=== PATIENT | female | born 1950 | race Two or more races ===

== ENCOUNTER 2022-08-22 21:17 | Inpatient (IN) | payer MEDICAID ==
[~2022-08-22] VITALS: Ht 165.1 cm; Wt 83.9 kg
[2022-08-22] MEDS ORDERED: MORPHINE SULFATE 4 MG/1 ML DISP.SYRIN IV ONE (22:30)
[2022-08-22] MEDS ORDERED: MORPHINE SULFATE 4 MG/1 ML DISP.SYRIN ONE (22:42)
[2022-08-22 22:46] LABS: HEMATOCRIT 38.1 % (31.2-41.9); MEAN CORPUSCULAR HEMOGLOBIN 27.7 uug (24.7-32.8); MEAN CORPUSCULAR VOLUME 84.3 fL (75.5-95.3); PLATELET COUNT (AUTO) 230 K/uL (179-408)
[2022-08-22 22:55] LABS: ALANINE AMINOTRANSFERASE 26 U/L (14-59); ALKALINE PHOSPHATASE 128 U/L (50-136); ASPARTATE AMINOTRANSFERASE 20 U/L (15-37); BILIRUBIN,TOTAL 0.6 mg/dL (0.2-1.0); CARBON DIOXIDE 25 mmol/L (21-32); CHLORIDE 104 mmol/L (98-107); CREATININE 1.9 mg/dL (0.6-1.3); GLUCOSE 130 mg/dL (74-106); POTASSIUM 4.4 mmol/L (3.5-5.1); UREA NITROGEN, BLOOD 42 mg/dL (7-18)
--- NOTE | 2022-08-22 23:33 | NUR ---
Patient out of unit for ct scan with no distress noted.
[2022-08-22] MEDS ORDERED: IV NORMAL SALINE 500 ML BAG IV ONE (23:45)
--- NOTE | 2022-08-22 23:51 | NUR ---
Patient back from ct scan with no distress noted.
[2022-08-23 00:45] LABS: *BILIRUBIN,URIN NEGATIVE (NEGATIVE); *BLOOD, URINE NEGATIVE (NEGATIVE); *CLARITY,URINE CLEAR (CLEAR); *COLOR,URINE YELLOW (YELLOW); *KETONES,URINE NEGATIVE (NEGATIVE); *UROBILINOGEN,URINE 0.2 E.U./dl (NORMAL); LEUKOCYTE ESTERASE ,URINE 2+ (NEGATIVE); NITRITE, URINE NEGATIVE (NEGATIVE); UGLUCOSE NEGATIVE (NEGATIVE)
[2022-08-23] MEDS ORDERED: SITA100T PO (01:26)
[2022-08-23] MEDS ORDERED: ATOR20TA PO (01:26)
[2022-08-23] MEDS ORDERED: CHOL2000 PO (01:26)
[2022-08-23] MEDS ORDERED: GLIM2TAB31 PO (01:26)
--- NOTE | 2022-08-23 01:29 | NUR ---
Dr Torres, [facility] MD business economist accepts patient to Med Surg.
[2022-08-23] MEDS ORDERED: ONDANSETRON 4 MG/2 ML VIAL IV PRN (01:30)
[2022-08-23] MEDS ORDERED: hydrALAZINE HCL 20 MG/1 ML VIAL IV PRN (01:30)
[2022-08-23] MEDS ORDERED: ACETAMINOPHEN 325 MG TABLET PO PRN (01:30)
[2022-08-23] MEDS ORDERED: HYDR-501 PO (02:28)
[2022-08-23] MEDS: IV NS 1000 ML 1,000 ML IV SCH ×2 (02:58→15:07)
--- NOTE | 2022-08-23 03:55 | NUR ---
Patient sleeping on gurny with no distress noted.
[2022-08-23 04:13] LABS: RBC,URINE 0-3 /HPF (0-3)
[2022-08-23 04:15] LABS: BACTERIA,URINE NONE SEEN /HPF (NONE SEEN); SQUAMOUS EPITHELIAL CELL,UR FEW /HPF (NONE SEEN)
--- NOTE | 2022-08-23 08:42 | NUR ---
Pt in stable condition. Pt not complaining of pain. Vitals stable. Currently waiting for placement upstairs. Safety measures in place. Will continue to monitor.
--- NOTE | 2022-08-23 09:25 | NUR ---
Gave report to Sejal (RN). Awaiting cleansing of Rm 301B.
[2022-08-23] MEDS ORDERED: CEFTRIAXONE 1 G in IV DEXTROSE 5% 50 ML IV SCH (10:00)
[2022-08-23] MEDS ORDERED: DEXTROSE 50% 50 ML DISP.SYRIN IV PRN (10:00)
--- NOTE | 2022-08-23 10:00 | NUR ---
Admission notes: Patient a 71 year old female, complaining of pain to left side of abdomen, brought in from ER via W/C, Patient is A/O X 3, [place] speaking with clear speech, good health historian, V/S RICH, write speak Moz[place]ican. Patient denies pain or discomfort at this time, patient ambulates with steady gait, skin is intact. 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 IV to right AC # 20 intact and patient, maintain fluid running at this time, All belonging inventor, patient orientated to unit, call light with in reach. Patient spoke to son. Fall and safety implemented, emotional support provided.
--- NOTE | 2022-08-23 10:02 | NUR ---
Pt transferred to Rm 301A as Rm 301B was already occupied by another Pt. Pt arrived to bed safely and in stable condition. All belongings are with pt.
[2022-08-23 10:30] VITALS: BP 140/73
[2022-08-23] MEDS ORDERED: HYDROCODONE/APAP 5-325MG TABLET PO PRN (10:30)
[2022-08-23] MEDS: BLOOD SUGAR DIAGNOSTIC 1 EACH STRIP VI SCH ×3 (11:30→21:00)
[2022-08-23 11:42] VITALS: BP 133/68
--- NOTE | 2022-08-23 14:29 | NUR ---
MS Nurse Notes: Patient is lying in bed, cooperative, V/S with normal limit, procedure this afternoon by DR Glaser, informed patient of procedure and Surgeon will talk with patient prior surgery, Family also notified per patient request. Patient continue NPO and all pre-op protocol maintain and follow through. Patient has not pain at this time. Will continue to monitor.
[2022-08-23 15:49] VITALS: BP 137/65
--- NOTE | 2022-08-23 16:47 | NUR ---
Patient taken to Surgery at this time.
[2022-08-23] MEDS ORDERED: KETAMINE HCL 200 MG/20 ML VIAL ONE (17:33)
[2022-08-23] MEDS ORDERED: FENTANYL CITRATE 100 MCG/2 ML AMPUL ONE (17:33)
--- NOTE | 2022-08-23 19:18 | NUR ---
Patient just returned from Surgery, patient is awake alert, denies pain or discomforts. V/S Bp 127/67 P 68, R 17, no S/S of distress, IV site to Left hand # 20.
[2022-08-23 20:00] VITALS: BP 121/61
--- NOTE | 2022-08-23 20:00 | NUR ---
AWAKE,ALERT,ORIENTED THAI SPEAKING.MEDICATED FOR PAIN. WITH MORPHINE 2 MG IV. RELIEVED. VOIDED IN THE BEDPAN. ACCUCHECKED-88. CLOSE MONITORING
[2022-08-23] MEDS ORDERED: CEFEPIME HCL 1 G VIAL ONE (20:43)
[2022-08-23] MEDS: CEFEPIME HCL 2 G in IV DEXTROSE 5% 100 ML IV SCH (20:52)
[2022-08-23 20:53] VITALS: BP 121/67
[2022-08-23] MEDS: MORPHINE SULFATE 2 MG/1 ML DISP.SYRIN IVP PRN (20:54)
[2022-08-23] MEDS: ATORVASTATIN 20 MG TABLET PO SCH (20:58)
--- NOTE | 2022-08-23 23:23 | NUR ---
ASLEEP. NO DISTRESS NOTED. IV LR 200 ML/HR TO LEFT HAND SITE-OK REPORTS GIVEN TO CHARGE NURSE.
--- NOTE | 2022-08-23 23:27 | NUR ---
IV NS 80 ML/HR INFUSING TO L T HAND NO DISTRESS NOTED.
[2022-08-24] MEDS: MORPHINE SULFATE 2 MG/1 ML DISP.SYRIN IVP PRN (00:54)
--- NOTE | 2022-08-24 00:54 | NUR ---
RECD PT IN BED, CRYING AND UNEASY,REPOSITIONED ,MEDICATED W/ MORPHINE SULFATE 2 MG IV, KEPT DRY AND CLEAN. ACTIVE LISTENING PROVIDED ,
[2022-08-24] MEDS: IV NS 1000 ML 1,000 ML IV SCH ×2 (02:30→12:02)
[2022-08-24] MEDS: CEFEPIME HCL 2 G in IV DEXTROSE 5% 100 ML IV SCH ×2 (06:00→18:33)
[2022-08-24 06:29] VITALS: BP 112/62
--- NOTE | 2022-08-24 06:33 | NUR ---
SLEPT AT LONG INTERVALS, AM BS 82, ASYMPTOMATIC OF ANY DIABETIC CRISIS, NO ACUTE DISTRESS NOTED. ENDORSED TO AM NURSE IN FAIR CONDITION.
[2022-08-24 07:02] LABS: HEMATOCRIT 36.1 % (31.2-41.9); MEAN CORPUSCULAR HEMOGLOBIN 27.7 uug (24.7-32.8); PLATELET COUNT (AUTO) 208 K/uL (179-408)
[2022-08-24 07:23] LABS: ALANINE AMINOTRANSFERASE 20 U/L (14-59); ALKALINE PHOSPHATASE 97 U/L (50-136); ASPARTATE AMINOTRANSFERASE 15 U/L (15-37); CARBON DIOXIDE 25 mmol/L (21-32); CHLORIDE 109 mmol/L (98-107); CREATININE 1.5 mg/dL (0.6-1.3); GLUCOSE 87 mg/dL (74-106); PHOSPHOROUS 4.2 mg/dL (2.5-4.9); POTASSIUM 4.5 mmol/L (3.5-5.1); UREA NITROGEN, BLOOD 27 mg/dL (7-18)
[2022-08-24] MEDS: BLOOD SUGAR DIAGNOSTIC 1 EACH STRIP VI SCH ×5 (07:36→20:32)
--- NOTE | 2022-08-24 07:36 | NUR ---
IVF STILL INFUSING, NOT GIVEN AT 0230, ATB DUE AT 0900,NOT GIVEN AT 0600,Q 12 HOURS,
--- NOTE | 2022-08-24 08:42 | NUR ---
RECEIVED FROM NIGHT NURSE: 1) Received AO x4 - asleep comfortably, no signs of pain, SOB -RA 2) Patient BS 82 - no signs of hypoglycemia observed 3) No bowel movement during the night. 4) iv fluids running at 80cc/hr - N/S 0.9% as per regime. 5) Pressure intact - self turning 6) Will continue to assess, plan, implement and evaluate care accordingly.
[2022-08-24] MEDS: CHOLECALCIFEROL 400 UNITS TABLET PO SCH (09:05)
--- NOTE | 2022-08-24 09:13 | NUR ---
AM MEDICATION: 1) Refused Vit tablet this morning. 2) Complaining that she has home meds that are not on [facility] - when asked for ditals - she became aggressive - stating that its on your system - you should know what l take. Talk to Maria Dolores. 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
[2022-08-24 11:28] VITALS: BP 121/55
[2022-08-24] MEDS: INSULIN REGULAR, HUMAN 300 UNIT/3 ML VIAL SQ PRN ×2 (12:16→20:33)
--- NOTE | 2022-08-24 12:21 | NUR ---
BLOOD SUGAR - 134 - INSULIN ADMINISTERED PRESCRIBED
[2022-08-24 16:00] VITALS: BP 133/62
--- NOTE | 2022-08-24 18:57 | NUR ---
WILL ENDORSE CARE TO NIGHT STAFF ACCORDINGLY
--- NOTE | 2022-08-24 19:59 | NUR ---
PATIENT AWAKE IN BED. A/O X4. FRENCH SPEAKING BUT ABLE TO MAKE NEEDS KNOWN. IVF INFUSING TO LEFT HAND #20 GAUGE. PATIENT IS REFUSING FOR IVF AT THIS TIME. VS WNL. PATIENT DENIES ANY PAIN OR DISCOMFORT. NO RESP. DISTRESS NOTED. CALL LIGHT IN REACH. ALL NEEDS ATTENDED, WILL CONTINUE TO MONITOR AND ASSESS.
[2022-08-24 20:23] VITALS: BP 140/66
[2022-08-24] MEDS: ATORVASTATIN 20 MG TABLET PO SCH (20:32)
--- NOTE | 2022-08-24 22:35 | NUR ---
CALLED OUT TO DR. ABDULLAHI AGAIN TO ASK FOR SLEEPING PILL ORDER. PATIENT IS AWAKE IN BED, UNABLE TO SLEEP AND ASKING FOR PRN.
[2022-08-24] MEDS ORDERED: ZOLPIDEM 5 MG TABLET PO ONE (23:00)
[2022-08-25 04:10] VITALS: BP 128/74
[2022-08-25] MEDS: CEFEPIME HCL 2 G in IV DEXTROSE 5% 100 ML IV SCH ×2 (06:20→17:03)
[2022-08-25] MEDS: BLOOD SUGAR DIAGNOSTIC 1 EACH STRIP VI SCH ×4 (06:24→21:00)
[2022-08-25 07:08] LABS: CARBON DIOXIDE 23 mmol/L (21-32); CHLORIDE 106 mmol/L (98-107); CREATININE 1.6 mg/dL (0.6-1.3); GLUCOSE 90 mg/dL (74-106); POTASSIUM 4.2 mmol/L (3.5-5.1); UREA NITROGEN, BLOOD 31 mg/dL (7-18)
--- NOTE | 2022-08-25 09:00 | NUR ---
RECEIVED PATIENT IN BED AWAKE ALERT AND ORIENTED [place]ENLAND[place] SPEAKING ONLY BUT ABLE TO MAKE SIMPLE NEEDS KNOWN.ON ROOM AIR WITH NO SHORTNESS OF BREATH REMAIN ON ATB ORDERED WITH NO ADVERSE OR ALLERGIC REACTIONS AT THIS TIME NO S/S OF HYPO/HYPERGLYCEMIC REACTIONS AT THIS TIME WILL CONTINUE TO OBSERVE.
[2022-08-25] MEDS: CHOLECALCIFEROL 400 UNITS TABLET PO SCH (09:20)
[2022-08-25] MEDS: HEPARIN SODIUM,PORCINE 5,000 UNITS/ML VIAL SQ SCH ×2 (09:21→22:03)
[2022-08-25] MEDS ORDERED: TEMAZEPAM 7.5 MG CAPSULE PO PRN (09:45)
[2022-08-25 11:31] VITALS: BP_SYST 127; BP_SYST 135; BP_DIAS 66; BP_DIAS 68
[2022-08-25] MEDS: INSULIN REGULAR, HUMAN 300 UNIT/3 ML VIAL SQ PRN ×2 (11:47→17:02)
[2022-08-25 16:00] VITALS: BP 132/75
--- NOTE | 2022-08-25 18:00 | NUR ---
UP AND AMBULATING IN THE HALLWAY WITH HER DAUGHTER AT HER SIDE DENIES PAIN OR DISCOMFORTS AT THIS TIME NO S/S OF ADVERSE OR ALLERGIC REACTIONS AT THIS TIME WILL CONTINUE TO OBSERVE.
--- NOTE | 2022-08-25 20:00 | NUR ---
Patient received in bed alert and orient vital sign stable no sign of distress noted made safe and comfortable.
[2022-08-25 21:23] VITALS: BP 120/57
[2022-08-25] MEDS: ATORVASTATIN 20 MG TABLET PO SCH (21:59)
--- NOTE | 2022-08-26 02:45 | NUR ---
patient complained of abdominal pain medication given as order made safe and comfortable. will continuous monitoring.
--- NOTE | 2022-08-26 03:51 | NUR ---
Patient in bed asleep no sign of distress noted made safe and comfortable.
[2022-08-26 06:04] VITALS: BP 126/56
[2022-08-26] MEDS: CEFEPIME HCL 2 G in IV DEXTROSE 5% 100 ML IV SCH (06:07)
[2022-08-26] MEDS: BLOOD SUGAR DIAGNOSTIC 1 EACH STRIP VI SCH ×2 (07:01→11:40)
[2022-08-26 07:12] LABS: CARBON DIOXIDE 25 mmol/L (21-32); CHLORIDE 105 mmol/L (98-107); CREATININE 1.6 mg/dL (0.6-1.3); GLUCOSE 112 mg/dL (74-106); POTASSIUM 4.1 mmol/L (3.5-5.1); UREA NITROGEN, BLOOD 34 mg/dL (7-18)
--- NOTE | 2022-08-26 08:00 | NUR ---
Received patient lying in bed awake, alert and oriented. Not in distress, no complain, no SOB. IV site at left hand g.20 Vital signs taken and recorded. Medications given and recorded
[2022-08-26] MEDS: CHOLECALCIFEROL 400 UNITS TABLET PO SCH (08:27)
[2022-08-26] MEDS: HEPARIN SODIUM,PORCINE 5,000 UNITS/ML VIAL SQ SCH (08:28)
[2022-08-26 11:38] VITALS: BP 129/72
[2022-08-26] MEDS: INSULIN REGULAR, HUMAN 300 UNIT/3 ML VIAL SQ PRN (11:49)
[2022-08-26] MEDS ORDERED: LEVO750T46 PO (13:44)
--- NOTE | 2022-08-26 13:50 | NUR ---
Seen and examined by Dr. Nolan with orders made and carried out. Patient for discharge, prepared discharge summary and papers Consent signed for discharge. Removed IV cannula clean and dry Given and instructed discharge paper. Assisted patient for discharge using a wheel chair
[2022-08-26 15:34] VITALS: BP 128/72
--- NOTE | 2022-08-26 15:35 | NUR ---
Patient stable at the time of discharge, No complain. Vital signs are normal Discharge patient at 1535
== END 2022-08-26 15:35 | disposition home or self-care (01) | DRG 463 ==
LOC: ER 21:17 → TRANSITION 08-23 02:35 → MEDSURG3 08-23 09:50 → TELE3 08-24 07:50 → MEDSURG3 08-24 07:55
PROVIDERS: ADMIT Student in an Organized Health Care Education/Training Program; ATTEND Nurse Practitioner Acute Care
PROC: 0T778DZ Dilation of Left Ureter with Intraluminal Device, Via Natural or Artificial Opening Endoscopic (ICD-10-PCS; principal; 2022-08-23)
DX: N13.6 Pyonephrosis (principal); N17.0 Acute kidney failure with tubular necrosis; C64.1 Malignant neoplasm of right kidney, except renal pelvis; E11.9 Type 2 diabetes mellitus without complications; B96.89 Other specified bacterial agents as the cause of diseases classified elsewhere; E66.9 Obesity, unspecified; Z90.5 Acquired absence of kidney; Z90.49 Acquired absence of other specified parts of digestive tract; Z79.899 Other long term (current) drug therapy; E78.5 Hyperlipidemia, unspecified; Z68.30 Body mass index [BMI] 30.0-30.9, adult; N18.9 Chronic kidney disease, unspecified; N83.202 Unspecified ovarian cyst, left side; Z79.84 Long term (current) use of oral hypoglycemic drugs; Z87.442 Personal history of urinary calculi; I10 Essential (primary) hypertension; Z20.822 Contact with and (suspected) exposure to COVID-19
CPT/HCPCS: 36415; 74018; 76770; 76856; 83605; 84100; 84484; 85025; 85610; 87040; A4663; C1713; C1758; G0378; J0692; J0696; J1644; J1815; J2270; J3010; J7040